=== PATIENT | female | born 1940 | race Caucasian/White ===

== ENCOUNTER 2021-10-29 11:46 | Outpatient (CLI) | payer MEDICARE, OTHER, SELFPAY ==
[2021-10-29 17:38] LABS: Albumin* 4.3 g/dL (3.3-5.0); Chloride* 102 mmol/L (96-114); Sodium* 138 mmol/L (135-149)
[2021-10-29 17:41] LABS: Alanine Aminotransferase* 30 U/L (4-35); Alkaline Phosphatase* 99 U/L (40-150); Aspartate Amino Transferase* 34 U/L (12-35); Bilirubin Total* 0.8 mg/dL (0.1-1.5); Blood Urea Nitrogen* 22 mg/dL (7-30); Carbon Dioxide* 31 mmol/L (20-32); Creatinine* 0.7 mg/dL (0.5-1.5); Estimated Glomerular Filt Rate 88 ml/min; Glucose* 99 mg/dL (60-115); Total Protein* 7.1 g/dL (6.0-8.3)
[2021-10-29 17:42] LABS: Calcium* 9.6 mg/dL (8.4-10.6)
== END 2021-10-29 11:47 | disposition home or self-care (01) ==
LOC: LONREF 11:49
PROVIDERS: PCP Family Medicine; Visit Provider Family Medicine
DX: R10.9 Unspecified abdominal pain (principal)
CPT/HCPCS: 80053

== ENCOUNTER 2022-03-18 16:48 | Outpatient (CLI) | payer MEDICARE, OTHER, SELFPAY ==
--- NOTE | 2022-03-18 17:15 | CRLHL7_ITS ---
For Patients: As a result of the Century Cures Act, medical imaging exams and procedure reports are released immediately into your electronic medical record. You may view this report before your referring provider. If you have questions, please contact your health care provider. BILATERAL SCREENING MAMMOGRAM WITH COMPUTER-AIDED DETECTION AND TOMOSYNTHESIS TECHNIQUE: CC and MLO views were obtained. These mammographic images have been obtained using full-field digital technique. These mammographic images were interpreted with the benefit of computer-aided detection. Breast Tomosynthesis was used in this interpretation. COMPARISON FILM: 03/15/21,01/10/20,03/31/18. FINDINGS: There are scattered areas of fibroglandular density IMPRESSION: There is no radiographic evidence for malignancy. ASSESSMENT: BI-RADS Category 1: Negative RECOMMENDATION: Routine screening mammogram in 1 year. A lay language report of this examination will be provided to the patient. Kobi Diaz M.D. Diagnostic Radiologist [email or web address] Transcribed: 3:42 pm DW/Dictated by: Kobi Diaz MD @ 03/19/2022 12:38:00 PM (Electronically Signed)
== END 2022-03-18 16:49 | disposition home or self-care (01) ==
PROVIDERS: PCP Family Medicine; Visit Provider Family Medicine
DX: Z12.31 Encounter for screening mammogram for malignant neoplasm of breast (principal)
CPT/HCPCS: 77063; 77067

== ENCOUNTER 2022-09-27 10:06 | Emergency (ER) | payer MEDICARE, OTHER, SELFPAY ==
[2022-09-27] VITALS (14 sets, daily range): BP systolic 136–188; BP diastolic 60–93; PULSE 62–68; RESP 12; O2SAT 94–98; BMI 33.1
--- NOTE | 2022-09-27 10:32 | CRLHL7_ITS ---
For Patients: As a result of the Century Cures Act, medical imaging exams and procedure reports are released immediately into your electronic medical record. You may view this report before your referring provider. If you have questions, please contact your health care provider. INDICATION: Fall.. TECHNIQUE: CT Head without contrast. COMPARISON: None. FINDINGS: CSF spaces: Within normal limits for age. Brain parenchyma: The pugh-white differentiation is normal. No sign of mass, hemorrhage, or midline shift. Skull base and calvarium: The visualized paranasal sinuses and mastoid air cells are clear. The visualized orbits are grossly unremarkable. No skull fractures. . IMPRESSION: Unremarkable noncontrast head CT. Please note that all CT scans at this facility use dose modulation, iterative reconstruction, and/or weight-based dosing when appropriate to reduce radiation dose to as low as reasonably achievable. Dictated by Raleigh Hubbard MD @ 09/27/2022 11:53:06 AM (Electronically Signed)
--- NOTE | 2022-09-27 10:32 | CRLHL7_ITS ---
For Patients: As a result of the Century Cures Act, medical imaging exams and procedure reports are released immediately into your electronic medical record. You may view this report before your referring provider. If you have questions, please contact your health care provider. INDICATION: Central chest pain radiating to the back. TECHNIQUE: 93 mL Isovue-370 IV contrast. FINDINGS: Uniform aortic attenuation with no dissection. No mediastinal hemorrhage. No central pulmonary artery filling defect with normal caliber. Heart size is normal. No pericardial or pleural effusion. Small sliding hiatus hernia. Lung parenchyma is clear of significant nodule or consolidation. No pneumothorax. No adenopathy. No bone finding of significance in the chest. No solid visceral injury or abnormal enhancement. Gallbladder absent likely cholecystectomy. Nodular area of disorganized renal parenchyma in the left upper hilum roughly 3 x 2 cm axial and 2.5 cm greatest craniocaudal length (image 46 series 7 and image 87 series 9). Small benign parenchymal cyst on the left. Solid mass versus complex cyst ventral lower pole 17 mm (image 66 series 7). Atherosclerosis of a normal caliber aorta. Small bowel and large bowel unremarkable for age. Absent uterus. Shallow fat filled right inguinal hernia. IMPRESSION: 1. No findings to account for acute central chest pain or back pain. 2. Apparent solid masses of both kidneys suspicious for low-grade renal cell carcinoma. Correlate with ultrasound. Please note that all CT scans at this facility use dose modulation, iterative reconstruction, and/or weight-based dosing when appropriate to reduce radiation dose to as low as reasonably achievable. Dictated by Raleigh Hubbard MD @ 09/27/2022 12:21:28 PM (Electronically Signed)
[2022-09-27 10:42] LABS: Lactate* 1.3 mmol/L (0.5-1.9)
[2022-09-27] MEDS: ONDANSETRON 2 MG/ML inj 4 MG IVP (10:43)
[2022-09-27 10:44] LABS: Basophils Absolute Auto 0.03 K/uL (0.00-0.30); Basophils Percent Auto 0.4 % (0.0-3.0); Eosinophils Absolute Auto 0.12 K/uL (0.00-0.50); Eosinophils Percent Auto 1.4 % (0.0-7.0); Hematocrit 50.1 % (33.0-51.0); Hemoglobin* 16.6 gm/dL (12.0-16.0); Immature Granulocytes Abs Auto 0.04 K/uL (0.00-0.30); Immature Granulocytes Pct Auto 0.5 %; Lymphocytes Absolute Auto 2.02 K/uL (0.90-2.90); Lymphocytes Percent Auto 24.3 % (20-44); Mean Corpuscular HGB Conc 33 gm/dL (32-36); Mean Corpuscular Hemoglobin 30 pg (26-34); Mean Corpuscular Volume 91 fL (80-100); Monocytes Percent Auto 6.7 % (0.0-11.0); Neutrophils Absolute Auto 5.53 K/uL (1.7-7.0); Neutrophils Percent Auto 66.7 % (42.0-72.0); Platelet Count* 218 K/uL (140-440); RDW Coefficient of Variation % 12.5 % (11.5-15.5); Red Blood Count 5.48 m/uL (4.00-5.20)
[2022-09-27 10:45] LABS: Slide Review Reflex No
--- NOTE | 2022-09-27 10:53 | ED.GENADULT ---
HPI - General Adult General Chief complaint: Chest Pain Stated complaint: possible heart attack Time Seen by Provider: 09/27/22 10:20 Source: patient Mode of arrival: ambulatory Limitations: no limitations History of Present Illness HPI narrative: Patient is a 82-year-old female coming in today complaining of not feeling well. She states that she was gardening this morning and felt fine. She went inside the house to have her daily morning protein drink which she had without difficulty. Then she had a little bit of orange juice in all the sudden she started feeling sick to her stomach and lightheaded. She tried to make it to her recliner but she states that she sank to the floor and potentially passed out. She is unsure if she lost consciousness or not but she believes that she might have. She tells me however that she was able to sink to the floor and not hit anything on the way down. She then got up on her own and sat down on the recliner and called her . She began feeling chest pain across the entire chest and the pain radiated into the center and right side of her back. She was able to ambulate to her car and her drove her here. At the moment she complains of feeling weak all over, chest pain that wraps across the entire front of the chest and continues to radiate into her back and down into the abdomen. This pain is made worse by any kind of movement. Of note, This pain started before she fell. She does not feel short of breath. She does feel very nauseated but has not yet vomited. She denies headache or blurry vision. No ringing in her ears. No vertiginous symptoms. She denies any focal neurologic deficits. She denies any pain in her neck. Related Data Home Medications Medication Instructions Recorded Confirmed No Known Home Medications 10/29/21 Allergies Allergy/AdvReac Type Severity Reaction Status Date / Time bacitracin Allergy Intermediate Hives Verified 10/29/21 11:03 cephalexin Allergy Intermediate Rash Verified 10/29/21 11:03 codeine Allergy Intermediate GI upset Verified 10/29/21 11:03 adhesive Allergy Unknown Rash Verified 10/29/21 11:03 feathers Allergy Unknown Rash Verified 10/29/21 11:03 gatifloxacin Allergy Unknown Rash Verified 10/29/21 11:03 neomycin Allergy Unknown Hives Verified 10/29/21 11:03 polymyxin B Allergy Unknown Hives Verified 10/29/21 11:03 triamcinolone Allergy Unknown intolerance Verified 10/29/21 11:03 Sulfamethoxazole / Allergy Severe hives, Uncoded 10/29/21 11:03 trimethoprim nausea, headache Bee venom Allergy Unknown Uncoded 10/29/21 11:03 Erythromycin Allergy Unknown Hives Uncoded 10/29/21 11:03 Review of Systems Status of ROS: Reports: 10 or more systems reviewed and unremarkable except as noted in History and below [facility] Medical History History of renal calculi ?Z87.442 - Personal history of urinary calculi (ICD-10) Surgical History Status post hysterectomy ?Z90.710 - Acquired absence of both cervix and uterus (ICD-10) Status post cholecystectomy ?Z90.49 - Acquired absence of other specified parts of digestive tract (ICD-10) Status post cataract extraction ?Z98.49 - Cataract extraction status, unspecified eye (ICD-10) Status post bladder repair ?Z98.890 - Other specified postprocedural states (ICD-10) History of tonsillectomy and adenoidectomy ?Z90.89 - Acquired absence of other organs (ICD-10) History of thumb surgery ?Z98.890 - Other specified postprocedural states (ICD-10) History of repair of retinal tear by laser photocoagulation ?Z98.890 - Other specified postprocedural states (ICD-10) Family History Other Breast cancer Diabetes Esophageal cancer Melanoma Myasthenia gravis Social History Smoking Status: Never smoker Do you use any of these nicotine containing products: None Second hand tobacco smoke exposure: No How often do you have a drink containing alcohol: never AUDIT-C Alcohol total score: 0 Non-prescribed substance use: denies use service: No Exam Narrative: Exam Narrative: Well-nourished well-developed patient in no acute distress. Alert and oriented x3. She keeps her eyes closed during the majority of the H&P. Answers questions appropriately. Mood and affect are appropriate. Thoughts are goal oriented and rational. No tangential or magical thinking noted. Patient speaks in full sentences without needing to catch her breath. Speech is not slurred or pressured. HEENT: Normocephalic atraumatic. Symmetric. Pupils are equally round reactive to light. Extraocular muscles are intact. Conjunctivae are moist without any icterus noted. No pallor noted. Moist mucous membranes. Posterior pharynx is normal. Neck is soft without any lymphadenopathy or thyromegaly. No masses are appreciated. Cardiovascular: Heart is regular rate and rhythm S1 and S2 are present without any murmurs. Lungs: Clear to auscultation bilaterally no wheezes rhonchi or rales are appreciated. Patient takes deep breaths without any discomfort. She jumps in pain when I lightly simply put my hand the skin of the anterior chest wall. She is less bothered when I am auscultating with firmer pressure with the stethoscope. Abdomen: Soft and nondistended with normal bowel sounds. No guarding or rebound. No masses or organomegaly appreciated. Patient groans loudly in pain with very light palpation of the epigastric region, she seems less bothered when the abdomen is being auscultated with firmer pressure by the stethoscope. Extremities: Bilateral lower extremities are without edema. Normal DP and PT pulses. Skin: Well perfused without any obvious rashes. Back: Patient has no tenderness to palpation at the cervical, thoracic or lumbar spine. She has discomfort around the upper right back that is diffuse and reproduced with very light touch, she has no point tenderness over the scapula. Const: Vital Signs, click to edit/add: Vital Signs - 24 hr 09/27/22 10:12 09/27/22 10:13 09/27/22 10:13 Pulse Rate 67 Pulse Rate [Pulse Oximeter] 65 Respiratory Rate Blood Pressure 188/93 H Blood Pressure [Le ft Upper Arm] 188/93 H Pulse Oximetry 97 97 98 Oxygen Delivery Me thod Room Air 09/27/22 10:32 09/27/22 11:02 09/27/22 11:33 Pulse Rate 62 68 Pulse Rate [Pulse Oximeter] Respiratory Rate 12 Blood Pressure 174/83 H 145/72 H 170/75 H Blood Pressure [Le ft Upper Arm] Pulse Oximetry 94 97 Oxygen Delivery Me thod 09/27/22 12:02 09/27/22 12:31 09/27/22 13:02 Pulse Rate 64 68 64 Pulse Rate [Pulse Oximeter] Respiratory Rate Blood Pressure 161/74 H 162/74 H 156/79 H Blood Pressure [Le ft Upper Arm] Pulse Oximetry 96 94 97 Oxygen Delivery Me thod 09/27/22 13:31 09/27/22 14:04 09/27/22 14:31 Pulse Rate 66 63 65 Pulse Rate [Pulse Oximeter] Respiratory Rate Blood Pressure 146/75 H 148/85 H 148/62 H Blood Pressure [Le ft Upper Arm] Pulse Oximetry 96 97 98 Oxygen Delivery Me thod 09/27/22 15:02 Pulse Rate 65 Pulse Rate [Pulse Oximeter] Respiratory Rate Blood Pressure 138/60 Blood Pressure [Le ft Upper Arm] Pulse Oximetry 95 Oxygen Delivery Me thod Course Course Hospital Course: Shortly after the physical exam was done patient did vomit. IV was started. 500 mL of normal saline was started as well. Patient received aspirin. EKG, read by me, shows a left bundle-branch block which according to the patient and her medical history is not new. Point of care troponin was normal. Given the amount of pain at the patient is describing across her chest and into her back we did proceed with a chest abdomen pelvis CT with contrast to rule out dissection. Chest, abdomen, pelvis CT did not show any evidence of aortic dissection or PE. Did however show bilateral kidney lesions concerning for carcinoma. Therefore we proceeded with ultrasound which confirmed the findings. Head CT was also done given an unwitnessed fall followed by vomiting. This was unremarkable. Repeat EKG showed some mild changes in leads 3 and AVF that were not concerning. Serial troponins times 3 in total remain unchanged. While waiting for ultrasound results, patient requested to each which she did without difficulty nausea or vomiting. She then actually felt significantly better stating that her pain was gone. She requested discharge at this time. We discussed at length that perhaps observation in the hospital overnight would be a better idea given the amount of pain that she was in earlier, patient stated that this was not necessary and she felt comfortable going home. Remainder of lab work was unremarkable. Vital Signs Vital signs: Initial Vital Signs Pulse Oximetry 97 09/27/22 10:12 Vital Signs Pulse Oximetry 97 09/27/22 10:12 Pulse Rate 65 09/27/22 15:02 Respiratory Rate 12 09/27/22 11:02 Blood Pressure 138/60 09/27/22 15:02 Pulse Oximetry 95 09/27/22 15:02 Oxygen Delivery Method Room Air 09/27/22 10:13 Medical Decision Making MDM Narrative Medical decision making narrative: 82-year-old female with an episode of syncope and chest pain radiating into her back, etiology unclear at this time but thorough workup did not find a reason for her symptoms today. Differential diagnoses considered including coronary artery disease and acute coronary syndrome, aortic dissection, PE, pneumothorax, pericarditis. Pain alleviated after eating. Nausea vomiting resolved. I do recommend she follow up with primary care provider this coming week to discuss her workup and her symptoms. I also recommend she follow up with her primary to discuss a follow-up MRI for her renal lesions. This was explained to her and her as well as written on her discharge documentation today. Medical Records Medical records reviewed: Yes I reviewed the patient's medical records Lab Data Lab results reviewed: Yes I reviewed the patient's lab results Labs: Lab Results 09/27/22 09/27/22 09/27/22 Range/Units 10:15 11:45 11:57 WBC 8.30 (4.50-11.00) K/uL RBC 5.48 H (4.00-5.20) m/uL Hgb 16.6 H (12.0-16.0) gm/dL Hct 50.1 (33.0-51.0) % MCV 91 (80-100) fL MCH 30 (26-34) pg MCHC 33 (32-36) gm/dL RDW Coeff of Cliff 12.5 (11.5-15.5) % Plt Count 218 (140-440) K/uL Neut % (Auto) 66.7 (42.0-72.0) % Lymph % (Auto) 24.3 (20-44) % Parmer % (Auto) 6.7 (0.0-11.0) % Eos % (Auto) 1.4 (0.0-7.0) % Baso % (Auto) 0.4 (0.0-3.0) % Neut # (Auto) 5.53 (1.7-7.0) K/uL Lymph # (Auto) 2.02 (0.90-2.90) K/uL Parmer # (Auto) 0.60 (0.00-0.90) K/UL Eos # (Auto) 0.12 (0.00-0.50) K/uL Baso # (Auto) 0.03 (0.00-0.30) K/uL ESR 5 (2-20) mm/hr Sodium 138 (135-149) mmol/L Potassium 4.4 (3.6-5.1) mmol/L Chloride 104 (96-114) mmol/L Carbon Dioxide 27 (20-32) mmol/L BUN 19 (7-30) mg/dL Creatinine 0.8 (0.5-1.5) mg/dL Estimated Creat Clear 37.12 Estimated GFR 74 ml/min Glucose 123 H (60-115) mg/dL Lactate 1.3 (0.5-1.9) mmol/L Calcium 9.5 (8.4-10.6) mg/dL Total Bilirubin 1.0 (0.1-1.5) mg/dL Direct Bilirubin 0.1 (0.0-0.5) mg/dL AST 33 (12-35) U/L ALT 27 (4-35) U/L Alkaline Phosphatase 94 (40-150) U/L Total Creatine Kinase 62 (41-117) U/L Troponin I < 0.01 L (0.01-0.04) ng/mL C-Reactive Protein 0.8 (0.5-1.0) mg/dL NT-Pro-B Natriuret Pep 247 pg/mL Total Protein 7.3 (6.0-8.3) g/dL Albumin 4.4 (3.3-5.0) g/dL Urine Color Yellow (Yellow) Urine Appearance Clear (Clear) Urine pH 7.5 (5.0-8.5) Ur Specific [place] 1.015 (1.000-1.030) Urine Protein Negative (Negative) Urine Glucose (UA) Negative (Negative) Urine Ketones Negative (Negative) Urine Blood Negative (Negative) Urine Nitrite Negative (Negative) Urine Bilirubin Negative (Negative) Urine Urobilinogen 0.2 (0.2-1.0) Ur Leukocyte Esterase Negative (Negative) Urine RBC 0-2 (0-2) Urine WBC 0-2 (0-5) Ur Squamous Epith Cells Few (None-Few) Urine Bacteria None (None) POC Troponin I 0.01 0.01 (0.01-0.04) ng/ml 09/27/22 Range/Units 13:20 WBC (4.50-11.00) K/uL RBC (4.00-5.20) m/uL Hgb (12.0-16.0) gm/dL Hct (33.0-51.0) % MCV (80-100) fL MCH (26-34) pg MCHC (32-36) gm/dL RDW Coeff of Cliff (11.5-15.5) % Plt Count (140-440) K/uL Neut % (Auto) (42.0-72.0) % Lymph % (Auto) (20-44) % Parmer % (Auto) (0.0-11.0) % Eos % (Auto) (0.0-7.0) % Baso % (Auto) (0.0-3.0) % Neut # (Auto) (1.7-7.0) K/uL Lymph # (Auto) (0.90-2.90) K/uL Parmer # (Auto) (0.00-0.90) K/UL Eos # (Auto) (0.00-0.50) K/uL Baso # (Auto) (0.00-0.30) K/uL ESR (2-20) mm/hr Sodium (135-149) mmol/L Potassium (3.6-5.1) mmol/L Chloride (96-114) mmol/L Carbon Dioxide (20-32) mmol/L BUN (7-30) mg/dL Creatinine (0.5-1.5) mg/dL Estimated Creat Clear Estimated GFR ml/min Glucose (60-115) mg/dL Lactate (0.5-1.9) mmol/L Calcium (8.4-10.6) mg/dL Total Bilirubin (0.1-1.5) mg/dL Direct Bilirubin (0.0-0.5) mg/dL AST (12-35) U/L ALT (4-35) U/L Alkaline Phosphatase (40-150) U/L Total Creatine Kinase (41-117) U/L Troponin I (0.01-0.04) ng/mL C-Reactive Protein (0.5-1.0) mg/dL NT-Pro-B Natriuret Pep pg/mL Total Protein (6.0-8.3) g/dL Albumin (3.3-5.0) g/dL Urine Color (Yellow) Urine Appearance (Clear) Urine pH (5.0-8.5) Ur Specific [place] (1.000-1.030) Urine Protein (Negative) Urine Glucose (UA) (Negative) Urine Ketones (Negative) Urine Blood (Negative) Urine Nitrite (Negative) Urine Bilirubin (Negative) Urine Urobilinogen (0.2-1.0) Ur Leukocyte Esterase (Negative) Urine RBC (0-2) Urine WBC (0-5) Ur Squamous Epith Cells (None-Few) Urine Bacteria (None) POC Troponin I 0.01 (0.01-0.04) ng/ml Imaging Data CT scan - head: Attestation: I have reviewed the pertinent imaging results. Radiologist's impression: CT Head without contrast. COMPARISON: None. FINDINGS: CSF spaces: Within normal limits for age. Brain parenchyma: The pugh-white differentiation is normal.? No sign of mass, hemorrhage, or midline shift. Skull base and calvarium: The visualized paranasal sinuses and mastoid air cells are clear.? The visualized orbits are grossly unremarkable.? No skull fractures.? . IMPRESSION: Unremarkable noncontrast head CT. CT Chest/Ab/Pelvis: Attestation: I have reviewed the pertinent imaging results. Radiologist's impression: TECHNIQUE: 93 mL Isovue-370 IV contrast. FINDINGS: Uniform aortic attenuation with no dissection. No mediastinal hemorrhage. No central pulmonary artery filling defect with normal caliber. Heart size is normal. No pericardial or pleural effusion. Small sliding hiatus hernia. Lung parenchyma is clear of significant nodule or consolidation. No pneumothorax. No adenopathy. No bone finding of significance in the chest. No solid visceral injury or abnormal enhancement. Gallbladder absent likely cholecystectomy. Nodular area of disorganized renal parenchyma in the left upper hilum roughly 3 x 2 cm axial and 2.5 cm greatest craniocaudal length (image 46 series 7 and image 87 series 9). Small benign parenchymal cyst on the left. Solid mass versus complex cyst ventral lower pole 17 mm (image 66 series 7). Atherosclerosis of a normal caliber aorta. Small bowel and large bowel unremarkable for age. Absent uterus. Shallow fat filled right inguinal hernia. IMPRESSION: 1. No findings to account for acute central chest pain or back pain. 2. Apparent solid masses of both kidneys suspicious for low-grade renal cell carcinoma. Correlate with ultrasound. US - abdomen: Attestation: I have reviewed the pertinent imaging results. Radiologist's impression: Bilateral renal masses. COMPARISON: CT abdomen and pelvis with contrast done earlier the same day. Findings: Renal and bladder ultrasound was performed. Right kidney 11.0 x 6.4 x 6.1 cm with cortical thickness of 1.6 cm. In the upper right kidney mid kidney medially there is an area marked by the paper pattern folder measuring 5.4 x 4.0 x 3.9 cm. This measures larger than mass on the CT scan done earlier same day animation on the ultrasound may include that in the renal hilum. A hypoechoic area within this measures approximately 2.4 by 2.0 cm and is solid in appearance. On the CT scan the mass measuring 3 x 2 x 2.5 cm and is enhancing and solid in appearance. There is no right hydronephrosis. The left kidney measures 11.0 x 5.5 x 5.3 cm. In the left kidney superiorly there is an area measured by the paper pattern folder which is likely normal renal parenchyma as there is no lesion in the upper pole of the left kidney on the CT scan. The lesion in the lower pole left kidney anteriorly on the CT scan of done earlier same day is not seen on this ultrasound. Also the previous described the cysts in the left kidney are not well seen on this ultrasound. There is no left hydronephrosis. The urinary bladder is unremarkable. IMPRESSION: Solid-appearing mass in the right mid kidney medially in the renal hilum worrisome for renal cell carcinoma. Previously described subtle lesion in the lower pole of the left kidney anteriorly on the CT scan done the same day is not well seen on this ultrasound. Also increased described cysts in left kidney are not well seen on this study. The lesion lower pole left kidney is worrisome for a worse for renal cell carcinoma on the CT scan. Recommend MRI of the kidneys with contrast for further evaluation. ECG Data Attestation: I personally reviewed and interpreted this ECG as follows: Discharge Plan Discharge Clinical Impression: Back pain, Atypical chest pain, Kidney lesion Patient Disposition: Home, Self-Care Condition: Improved Additional Instructions: Your workup was unremarkable today: There was no evidence of heart attack, pneumonia, blood clots in your lungs or inflammation of the heart or lungs today. Reason for your back and chest pain is unclear, however no evidence of life-threatening causes identified today. Did find a lesion on both of your kidneys that are concerning for tumors. I do recommend you follow-up with your primary care provider this coming week to have an MRI scheduled of your abdomen to get a better look at the kidneys. Recommend you call your primary care on Thursday morning to set up an appointment for an ER follow-up. Dr. Chapa will have access to today's notes and results. Prescriptions: No Action No Known Home Medications Follow Up/Referrals: Jack Gregorio MD [Primary Care Provider] - Stand Alone Forms: [employer] Info Instructions
[2022-09-27 11:01] LABS: Albumin* 4.4 g/dL (3.3-5.0)
[2022-09-27] MEDS: ASPIRIN 81 MG TAB.CHEW 324 MG PO (11:01)
[2022-09-27 11:02] LABS: Chloride* 104 mmol/L (96-114); Potassium* 4.4 mmol/L (3.6-5.1); Sodium* 138 mmol/L (135-149)
[2022-09-27] MEDS: 0.9 % SODIUM CHLORIDE 500 ML 500 ML IV (11:02)
[2022-09-27 11:04] LABS: Alanine Aminotransferase* 27 U/L (4-35); Alkaline Phosphatase* 94 U/L (40-150); Aspartate Amino Transferase* 33 U/L (12-35); Bilirubin Direct* 0.1 mg/dL (0.0-0.5); Total Protein* 7.3 g/dL (6.0-8.3)
[2022-09-27 11:05] LABS: Blood Urea Nitrogen* 19 mg/dL (7-30); Carbon Dioxide* 27 mmol/L (20-32); Creatinine* 0.8 mg/dL (0.5-1.5); Est. Creatinine Clearance* 37.12; Estimated Glomerular Filt Rate 74 ml/min; Glucose* 123 mg/dL (60-115)
[2022-09-27 11:06] LABS: Calcium* 9.5 mg/dL (8.4-10.6)
[2022-09-27 11:07] LABS: C Reactive Protein* 0.8 mg/dL (0.5-1.0)
[2022-09-27 11:15] LABS: NT Pro B Type NatriureticPept* 247 pg/mL
[2022-09-27 11:17] LABS: Troponin I* < 0.01 ng/mL (0.01-0.04)
[2022-09-27 11:21] LABS: Erythrocyte SedimentationRate* 5 mm/hr (2-20)
[2022-09-27 12:04] LABS: Troponin, Point-of-Care* 0.01 ng/ml (0.01-0.04)
[2022-09-27 12:04] LABS: Troponin, Point-of-Care* 0.01 ng/ml (0.01-0.04)
[2022-09-27 12:08] LABS: Appearance Urine Clear (Clear); Bilirubin Urine Negative (Negative); Blood Urine Negative (Negative); Color Urine Yellow (Yellow); Glucose Urine Negative (Negative); Ketones Urine Negative (Negative); Leukocyte Esterase Urine Negative (Negative); Nitrite Urine Negative (Negative); Protein Urine Negative (Negative); Specific Gravity Urine 1.015 (1.000-1.030); Urobilinogen Urine 0.2 (0.2-1.0); pH Urine 7.5 (5.0-8.5)
[2022-09-27 12:25] LABS: RBC Urine 0-2 (0-2); Squamous Epithelial Cell Urine Few (None-Few); WBC Urine 0-2 (0-5)
--- NOTE | 2022-09-27 12:46 | ED.NURSE ---
declined morphine as she states she doesn't need it and is afraid to take it due to how she may react to it.
[2022-09-27 13:01] LABS: Creatine Kinase* 62 U/L (41-117)
--- NOTE | 2022-09-27 13:15 | CRLHL7_ITS ---
For Patients: As a result of the Century Cures Act, medical imaging exams and procedure reports are released immediately into your electronic medical record. You may view this report before your referring provider. If you have questions, please contact your health care provider. INDICATION: Bilateral renal masses. COMPARISON: CT abdomen and pelvis with contrast done earlier the same day. Findings: Renal and bladder ultrasound was performed. Right kidney 11.0 x 6.4 x 6.1 cm with cortical thickness of 1.6 cm. In the upper right kidney mid kidney medially there is an area marked by the utility system repairer measuring 5.4 x 4.0 x 3.9 cm. This measures larger than mass on the CT scan done earlier same day animation on the ultrasound may include that in the renal hilum. A hypoechoic area within this measures approximately 2.4 by 2.0 cm and is solid in appearance. On the CT scan the mass measuring 3 x 2 x 2.5 cm and is enhancing and solid in appearance. There is no right hydronephrosis. The left kidney measures 11.0 x 5.5 x 5.3 cm. In the left kidney superiorly there is an area measured by the utility system repairer which is likely normal renal parenchyma as there is no lesion in the upper pole of the left kidney on the CT scan. The lesion in the lower pole left kidney anteriorly on the CT scan of done earlier same day is not seen on this ultrasound. Also the previous described the cysts in the left kidney are not well seen on this ultrasound. There is no left hydronephrosis. The urinary bladder is unremarkable. IMPRESSION: Solid-appearing mass in the right mid kidney medially in the renal hilum worrisome for renal cell carcinoma. Previously described subtle lesion in the lower pole of the left kidney anteriorly on the CT scan done the same day is not well seen on this ultrasound. Also increased described cysts in left kidney are not well seen on this study. The lesion lower pole left kidney is worrisome for a worse for renal cell carcinoma on the CT scan. Recommend MRI of the kidneys with contrast for further evaluation. Dictated by Teddy Orellana MD @ 09/27/2022 3:46:57 PM (Electronically Signed)
[2022-09-27 13:56] LABS: Troponin, Point-of-Care* 0.01 ng/ml (0.01-0.04)
== END 2022-09-27 16:29 | disposition home or self-care (01) ==
PROVIDERS: Emergency Provider Family Medicine; PCP Family Medicine
DX: M54.9 Dorsalgia, unspecified (principal); R07.89 Other chest pain; N28.9 Disorder of kidney and ureter, unspecified
CPT/HCPCS: 36415; 70450; 71260; 74177; 76775; 80048; 80076; 81001; 82550; 82962; 83605; 83880; 84484; 85025; 85651; 86140; 87086; 93005; 94761; 96361; 96374; 96375; 99284; 99285; A9270; J2405; J7120; Q9967

== ENCOUNTER 2022-10-10 07:03 | Outpatient (CLI) | payer MEDICARE, OTHER, SELFPAY ==
--- NOTE | 2022-10-10 07:15 | CRLHL7_ITS ---
For Patients: As a result of the Century Cures Act, medical imaging exams and procedure reports are released immediately into your electronic medical record. You may view this report before your referring provider. If you have questions, please contact your health care provider. INDICATION: Bilateral renal lesions. COMPARISON: CT chest, abdomen and pelvis with intravenous contrast September 27, 2022; ultrasound examination of the kidneys September 27, 2022. TECHNIQUE: Precontrast T1 and T2 weighted imaging; T2 haste imaging; diffusion weighted imaging; in and out of phase imaging; postcontrast imaging including subtraction; 15 cc of Dotarem contrast was injected. FINDINGS: A 3 x 2.9 x 2.5 cm solid enhancing mass medial aspect anterior upper pole right kidney. A 2 x 1.7 cm solid enhancing mass in the renal parenchyma anterior aspect lower pole left kidney. Several cysts identified in the left kidney. No adrenal pathology. Diffuse fatty infiltration of the liver. No focal hepatic or splenic pathology. No pancreatic pathology. Status post cholecystectomy. No evidence of biliary duct dilatation. No retroperitoneal lymphadenopathy. No evidence of abdominal ascites. IMPRESSION: 1. A 3 x 2.9 x 2.5 cm solid enhancing mass anterior medial upper pole right kidney and a 2 x 1.7 cm solid enhancing mass within the renal parenchyma anterior lower pole left kidney; need to be considered as renal cell carcinomas until proven otherwise. 2. A 1.2 cm lesion medial aspect lower pole left kidney that was seen on the CT could not be reproduced on this MR study ; Still concerning for an additional small renal cell neoplasm in this location. 3. Multiple small cortical cyst left kidney. Dictated by Bashir Mai MD @ 10/10/2022 2:28:38 PM (Electronically Signed)
== END 2022-10-10 07:04 | disposition home or self-care (01) ==
LOC: MRI 07:06
PROVIDERS: PCP Family Medicine; Visit Provider Family Medicine
DX: N28.89 Other specified disorders of kidney and ureter (principal); N28.1 Cyst of kidney, acquired
CPT/HCPCS: 74183; A9575

== ENCOUNTER 2022-10-20 08:24 | Outpatient (CLI) | payer MEDICARE, OTHER, SELFPAY | END 2022-10-20 08:25 | disposition home or self-care (01) | PROVIDERS: PCP Family Medicine; Visit Provider Family Medicine | DX: Z01.818 Encounter for other preprocedural examination (principal) | CPT/HCPCS: 80048 ==

== ENCOUNTER 2023-03-24 16:03 | Outpatient (CLI) | payer MEDICARE, OTHER, SELFPAY ==
--- NOTE | 2023-03-24 16:20 | CRLHL7_ITS ---
For Patients: As a result of the Century Cures Act, medical imaging exams and procedure reports are released immediately into your electronic medical record. You may view this report before your referring provider. If you have questions, please contact your health care provider. BILATERAL SCREENING MAMMOGRAM WITH COMPUTER-AIDED DETECTION AND TOMOSYNTHESIS TECHNIQUE: CC and MLO views were obtained. These mammographic images have been obtained using full-field digital technique. These mammographic images were interpreted with the benefit of computer-aided detection. Breast Tomosynthesis was used in this interpretation. COMPARISON FILM: 03/15/21, 01/10/20, 03/31/18. FINDINGS: There are scattered areas of fibroglandular density IMPRESSION: There is no radiographic evidence for malignancy. ASSESSMENT: BI-RADS Category 1: Negative RECOMMENDATION: Routine screening mammogram in 1 year. A lay language report of this examination will be provided to the patient. Clary Mistry M.D. Diagnostic/Breast Radiologist [email or web address] BERRY/Dictated by: Clary Mistry MD @ 03/26/2023 4:16:00 PM (Electronically Signed)
== END 2023-03-24 16:04 | disposition home or self-care (01) ==
LOC: MAMMO 16:04
PROVIDERS: PCP Family Medicine; Visit Provider Family Medicine
DX: Z12.31 Encounter for screening mammogram for malignant neoplasm of breast (principal)
CPT/HCPCS: 77063; 77067

== ENCOUNTER 2024-02-09 09:12 | Outpatient (CLI) | payer MEDICARE, OTHER, SELFPAY ==
--- OUTSIDE RECORDS SUMMARY | 2024-02-09 09:16 | XMS_ITS | Clinical Summary ---
Author Organization [facility] Address [place], [place] [address] Care Team Providers Care Records Management Engineer Name Role Phone Jack Gregorio MD Primary Care Provider Allergies Active Allergy Reactions Criticality Noted Date Comments Zinc Acetate Rash 08/10/2018 Bacitracin Hives 02/20/2011 Sulfamethoxazole-Trimet hoprim Hives,Nausea Only,Headache High 03/23/2018 Hymenoptera Allergenic Extract 01/08/2009 Codeine GI Upset 01/28/2007 Erythromycin Hives 02/20/2011 From ointment Feathers Rash 01/28/2007 Cephalexin Rash 01/28/2007 ##Pharmacist completed allergy assessment. Allergy determined to be low risk. Will likely tolerate cefazolin, as it does not share a side chain with cephalexin and risk for cross-reactivity is low. Bessie Diane [facility] Wzexekwd-Kqzwundzhs-Tgg ymyxin Hives 02/20/2011 Adhesive Tape Rash 01/28/2007 Gatifloxacin Rash 01/28/2007 Triamcinolone Intolerance-Can't Take 01/28/2007 Medications Medication Sig Dispensed Refills Start Date End Date Status Patients Unique Medication From Home Osteo matrix - 1 tablet by mouth at bedtime Joint complex - 1 tablet by mouth at bedtime Active oxyCODONE (ROXICODONE) 5 mg immediate release tabletIndications:Ri ght renal mass Take 1 Tablet (5 mg) by mouth every 6 hours if needed for Pain. 10 Tablet 11/22/2022 Active docusate (COLACE) 100 mg capsuleIndications:R ight renal mass Take 1 Capsule (100 mg) by mouth 2 times daily if needed for Constipation. 30 Capsule 11/22/2022 Active Active Problems No known active problems Immunizations Name Administration Dates Next Due Td (Age >=7 Years) 01/22/2006 Tdap 03/20/2015 Family History Medical History Relation Name Comments Cancer Brother 2 MELANOMA Diabetes Father Other Father MYASTHENIA GRAV IS Cancer Mother ESOPHAGEAL Cancer-breast Sister Relation Name Status Comments Brother 1 Brother 2 Father Mother Sister Social History Tobacco Use Types Packs/Day Years Used Date Smoking Tobacco: Never Smokeless Tobacco: Never Tobacco Cessation:Counseling Given: Yes Alcohol Use Standard Drinks/Week Comments No 0 (1 standard drink = 0.6 oz pur e alcohol) PHQ-2 Answer Date Recorded PHQ-2 TOTAL SCORE 0 01/10/2020 Social Connections Answer Date Recorded Frequency of Communication with Friends and Fami ly Not on file 11/21/2022 Financial Resource Strain Answer Date R ecorded Difficulty of Paying Living Expenses Not on file 04/06/2021 Difficulty of Paying Living Expenses Not on file 04/06/2021 Sex and Gender Information Value Date Recorded Sex Assigned at Not on file Gender Identity Not on file Sexual Orientation Not on file Obstetrics History Para Term AB IAB SAB Ectopic Multiple Livin g Live Births 7 6 6 1 1 6 Date Outcome GA Total Labor Labor/2nd/3rd Weight Sex Type Anes PTL Nancy A1 A5 Name Clin SAB Term Term Term Term Term Term Last Filed Vital Signs Vital Sign Reading Time Taken Comments Blood Pressure 121/60 11/22/2022 7:50 AM CDT Pulse 63 11/22/2022 7:50 AM CDT Temperature 36.6 ??C (97.8 ??F) 11/22/2022 7:50 AM CD T Respiratory Rate 18 11/22/2022 7:50 AM CDT Oxygen Saturation 93% 11/22/2022 7:50 AM CDT Inhaled Oxygen Concentration - - Weight 88 kg (194 lb 1.6 oz) 11/22/2022 6:00 AM CDT Height 157.5 cm (5' 2) 11/21/2022 6:52 AM CDT Body Mass Index 35.5 11/21/2022 6:52 AM CDT Plan of Treatment Health Maintenance Due Date Last Done Comments Zoster (shingles) series for age 50+ (1 of 2) 02/02/1992 Pneumococcal series for age 65+ (1 of 1 - PCV) 2007 RSV vaccine for adults or (1 - 1-dose 75+ series) 2017 BMI (ht and wt on same day) for age 18+ 01/09/2021 01/10/2020, 01/17/2019, 12/27/2018, Additional history exists Depression screening for age 12+ 01/09/2021 01/10/2020, 03/31/2018, 03/27/2017, Additional history exists Medicare Wellness for age 65+ 01/10/2021, 03/31/2018, 03/27/2017, Additional history exists COVID-19 vaccine series ( season) 2023 08/13/2021, 01/21/2021, 06/05/2020, Additional history exists Influenza for age 65+ 12/06/2023 Tetanus booster 03/20/2025 03/20/2015, 01/22/2006 DEXA/DXA scan for age 65+ Completed 02/20/2011 Tdap Completed 03/20/2015 Procedures Procedure Name Priority Date/Time Associated Diagnosis Comments XR DXA BONE DENSITY 2 SITES AXIAL Routine 02/20/2011 11:36 AM VEGETABLE VENDOR Post hysterectomy menopause from Last 3 Months or Most Recently Relevant to Health Maintenance Results * XR DEXA BONE DENSITY 2 SITES (02/20/2011 11:36 AM VEGETABLE VENDOR) Anatomical Region Laterality Modality Spine, HIPS, HIPL, HIPR Bone Den sitometry Narrative 02/28/2011 9:32 AM VEGETABLE VENDOR Please see scanned document for results of this study. Procedure Note Mary Almonte MD - 02/28/2011 Please see scanned document for results of this study. Jeevan Obrien MD DEXA from Last 3 Months or Most Recently Relevant to Health Maintenance Advance Directives * Full Code (Latest Code Status on File) Date Activated Date Inactivated Comments 11/21/2022 6:12 AM 11/22/2022 8:10 PM Question Answer Comments Code Status Discussion: Unable to Assess Preferences, Provider to review later Care Teams Records Management Engineer Relationship Specialty Start Date End Date Jack Gregorio MD PCP - General Family Practice 01/26/23
== END 2024-02-09 09:13 | disposition home or self-care (01) ==
PROVIDERS: PCP Family Medicine; Visit Provider Family Medicine
DX: Z00.00 Encounter for general adult medical examination without abnormal findings (principal); R53.83 Other fatigue; E78.5 Hyperlipidemia, unspecified
CPT/HCPCS: 80053; 80061; 84443; 87086

== ENCOUNTER 2024-04-12 08:29 | Outpatient (CLI) | payer MEDICARE, OTHER, SELFPAY ==
--- NOTE | 2024-04-12 08:45 | CRLHL7_ITS ---
For Patients: As a result of the Century Cures Act, medical imaging exams and procedure reports are released immediately into your electronic medical record. You may view this report before your referring provider. If you have questions, please contact your health care provider. BILATERAL SCREENING MAMMOGRAM WITH COMPUTER-AIDED DETECTION AND TOMOSYNTHESIS TECHNIQUE: CC and MLO views were obtained. These mammographic images have been obtained using full-field digital technique. These mammographic images were interpreted with the benefit of computer-aided detection. Breast Tomosynthesis was used in this interpretation. COMPARISON FILM: 03/24/23, 03/18/22, 03/15/21. FINDINGS: There are scattered areas of fibroglandular density. IMPRESSION: There is no radiographic evidence for malignancy. ASSESSMENT: BI-RADS Category 2: Benign RECOMMENDATION: Routine screening mammogram in 1 year. A lay language report of this examination will be provided to the patient. Kobi Diaz M.D. Diagnostic Radiologist [email or web address] SP/Dictated by: Kobi Diaz MD @ 04/12/2024 10:28:00 AM (Electronically Signed)
== END 2024-04-12 08:30 | disposition home or self-care (01) ==
LOC: MAMMO 08:30
PROVIDERS: PCP Family Medicine; Visit Provider Family Medicine
DX: Z12.31 Encounter for screening mammogram for malignant neoplasm of breast (principal)
CPT/HCPCS: 77063; 77067

== ENCOUNTER 2024-11-04 10:16 | Outpatient (CLI) | payer MEDICARE, OTHER, SELFPAY | END 2024-11-04 10:17 | disposition home or self-care (01) | PROVIDERS: PCP Family Medicine; Visit Provider Family Medicine | DX: E78.5 Hyperlipidemia, unspecified (principal); R53.83 Other fatigue; R10.11 Right upper quadrant pain | CPT/HCPCS: 80053; 82607; 84443; 86140 ==

== ENCOUNTER 2025-03-24 08:22 | Emergency (ER) | payer MEDICARE, OTHER, SELFPAY ==
[2025-03-24] VITALS (10 sets, daily range): BP systolic 161–193; BP diastolic 69–83; PULSE 63–74; RESP 14–23; TEMP 36.2; O2SAT 91–95; BMI 32.9
--- OUTSIDE RECORDS SUMMARY | 2025-03-24 08:26 | XMS_ITS | Clinical Summary ---
Author Organization [employer] [facility] Address [address] [place] [id number] Care Team Providers Care Plastic Roller Name Role Phone Jack Gregorio MD Primary Care Provider [phone] Allergies Active AllergyReactionsCriticalityNoted DateCommentsZinc NzaknunGawl34/07/2019 VnndvrmprkQcbxg40/17/2011Sulfamethoxazole-TrimethoprimHives,Nausea Only,Headache High03/23/2018Hymenoptera Allergenic Vsszlmd9901/08/2009CodeineGI Upset01/28/2007 KvojzyreuapsTlmgl17/17/2011 From ointment QhwqygrhBgtu77/25/4550ZhkyjifsmwNtpr55/25/2007 ##Pharmacist completed allergy assessment. Allergy determined to be low risk. Will likely tolerate cefazolin, as it does not share a side chain with cephalexin and risk for cross-reactivity is low. Bessie Diane RP Jbmhhola-Ypzqgapiux-LloptmrfvGxjnk56/17/2011dhesive ZfyiZxvh61/25/2007 KgtrcwnwjpclTuwn17/25/2007TriamcinoloneIntolerance-Can't Take01/28/2007 Medications MedicationSigDispense QuantityRefillsLast FilledStart DateEnd DateStatus Patients Unique Medication From Home Osteo matrix - 1 tablet by mouth at bedtime Joint complex - 1 tablet by mouth at bedtimeActive oxyCODONE (ROXICODONE) 5 mg immediate release tablet Indications:Right renal massTake 1 Tablet (5 mg) by mouth every 6 hours if needed for Pain. 10 Tablet 11/22/2022 5:19 PM CDT11/22/2022ctive docusate (COLACE) 100 mg capsule Indications:Right renal massTake 1 Capsule (100 mg) by mouth 2 times daily if needed for Constipation. 30 Capsule 11/22/2022ctive Active Problems No known active problems Immunizations ImmunizationAdministration DatesNext DueTd (Age >=7 Years)01/22/2006Tdap 03/20/2015 Family History Medical HistoryRelationNameCommentsCancerBrother 2MELANOMADiabetesFatherOther FatherMYASTHENIA GRAVISCancerMotherESOPHAGEALCancer-breastSisterRelationName StatusCommentsBrother 1DeceasedBrother 2FatherDeceasedMotherDeceasedSister Social History Tobacco UseTypesPacks/DayYears UsedDateSmoking Tobacco: NeverSmokeless Tobacco: Never Tobacco Cessation:Counseling Given: Yes Alcohol UseStandard Drinks/WeekCommentsNo0 (1 standard drink = 0.6 oz pure alcohol)PHQ-2AnswerDate RecordedPHQ-2 TOTAL [id number] Connections AnswerDate RecordedFrequency of Communication with Friends and FamilyNot on file 11/21/2022Financial Resource StrainAnswerDate RecordedDifficulty of Paying Living ExpensesNot on file2Difficulty of Paying Living ExpensesNot on file04/06/2021CommentsNoSex and Gender InformationValueDate RecordedSex Assigned at BirthNot on fileLegal CdnAumwxt27/14/2013 5:23 AM CSTGender Identity Not on fileSexual OrientationNot on fileOccupationIndustryJob Start DateJob End DateHOMEMAKERNot on fileNot on fileNot on file Obstetrics History GravidaParaTermPretermABIABSABEctopicMultipleLivingLive [id number] GATotal LaborLabor/2nd/7pjGekxmyIyoOzcyHqoaLXAKypK3T2NmyjUeyhWXRUworToppCzwjBsmk TermTerm Last Filed Vital Signs Vital SignReadingTime TakenCommentsBlood Yavqrrfn682/6008 7:50 AM CDT Sfwzj756911/22/2022 7:50 AM HEVIitzubbwgwx09.6 ??C (97.8 ??F)11/22/2022 7:50 AM CDTRespiratory Riim855411/22/2022 7:50 AM CDTOxygen Rwuxbcpmce70%11/22/2022 7:50 AM CDTInhaled Oxygen Concentration--Tsjmpa77 kg (194 lb 1.6 oz)11/22/2022 6:00 AM ZNZXaxxvz028.5 cm (5' 2)11/21/2022 6:52 AM CDTBody Mass Index35.5011/21/2022 6:52 AM CDT Plan of Treatment Health MaintenanceDue DateLast DoneCommentsPneumococcal series for age 50+ (1 of 1 - PCV)02/02/1992Zoster (shingles) series for age 50+ (1 of 2)02/02/1992RSV vaccine for adults or (1 - 1-dose 75+ series)2017BMI (ht and wt on same day) for age 18+, 01/17/2019, 12/27/2018, Additional history existsDepression screening for age 12+, 03/31/2018, 03/27/2017, Additional history existsMedicare Wellness for age 65+01/10/2021 01/10/2020, 03/31/2018, 03/27/2017, Additional history existsCOVID-19 vaccine series ( season)/01/2022, 01/21/2021, 06/05/2020, Additional history existsInfluenza Vaccine (#1)12/05/2024Tetanus booster /, 01/22/2006DEXA/DXA scan for age 65+Slylwirzo12/17/2011 Hepatitis B series for 19+Aged OutNo longer eligible based on patient's age to complete this topic Procedures Procedure NamePriorityDate/TimeAssociated DiagnosisCommentsXR DXA BONE DENSITY 2 SITES PIOIEYcvaaim26/17/2011 11:36 AM NEON LIGHT INSTALLER Post hysterectomy menopause from Last 3 Months or Most Recently Relevant to Health Maintenance Results * XR DEXA BONE DENSITY 2 SITES (02/20/2011 11:36 AM NEON LIGHT INSTALLER)Anatomical Region LateralityModalitySpine, HIPS, HIPL, HIPRBone DensitometrySpecimen (Source) Anatomical Location / LateralityCollection Method / VolumeCollection Time Received Time Narrative 02/28/2011 9:32 AM NEON LIGHT INSTALLER Please see scanned document for results of this study. Procedure Note Mary Almonte MD - 02/28/2011 Please see scanned document for results of this study. Authorizing ProviderResult TypeResult StatusReed A Micah MDDEXAFinal Result from Last 3 Months or Most Recently Relevant to Health Maintenance Insurance * Guarantor: Grace Jimenez TypeRelation to PatientDate of BirthPhone Billing AddressPersonal/QuqivrOqjx1940 [address] [place] [phone] Advance Directives * Full Code (Latest Code Status on File) Date ActivatedDate InactivatedComments11/21/2022 6:12 AM11/22/2022 8:10 PM QuestionAnswerCommentsCode Status Discussion:* Unable to Assess Preferences, Provider to review later Care Teams Team MemberRelationshipSpecialtyStart DateEnd Date Jack Gregorio MD PCP - GeneralFamily Wxuichsm41/23/23
--- OUTSIDE RECORDS SUMMARY | 2025-03-24 08:26 | XMS_ITS | Data Portability ---
Author Organization [place] [facility] Address [address] [place] [address] Assessment No assessment recorded. Plan of Treatment Reminders Order DateSubmit DateProviderLast Modified ByHarlan DetailsLast Modified TimeDetailsAppointmentsNone recorded.Labbladder cancer assay, urine - If specimen is rejected or is QNS please send patient a home kit10/23/2022 10/23/2022[employer], [address], [address], [place], [address], 07/ 10:12:11ReferralNone recorded.ProceduresNone recorded.Surgeriesnephrectomy, hand assisted laparoscopic (SURG)rbuchanan11Not bridthyxw91/25/2023 11:36:43ImagingNone recorded.Medication OrdersNone recorded. Patient TargetsNo targets recorded. Patient InstructionsNo instructions recorded. Reason for Referral None Reported. Results Created Date Observation Date Name Description Value Unit Range Abnormal Flag Note LastModifiedBy Organization Detail LastModifiedTime 10/23/2022 CT, abdomen + pelvis, w/o contrastNo observation recorded.csovellNot Available 11/21/2022 08:35:56 Result Notes None recorded. Procedures Surgical History Date Name Laterality Status Provider Name and Address Organization Details Recorded Time 11/21/2022 NEPHRECTOMY, HAND ASSISTED LAPAR OSCOPIC (SURG) Shahab Tellez [facility] Eeqragk4412/02/2022 09:58: ColonoscopycompletedSamantha Sadeel[place] [facility]10/23/2022 14:08:12 CholecystectomycompletedTanika SalasNorth [facility]10/16/2022 16:37:40extraction of cataractcom[facility] He[facility]ejas [facility] 10/16/2022 16:37:51repair of urinary bladdercomrusk rehabilitation centerJack [facility]10/16/2022 16:38:03Remove tonsils and adenoidscomfitzgibbon hospitalTanika [facility]10/16/2022 16:38:32Total hysterectomycompleted Zoila AnandNorth [facility]10/23/2022 14:07:41 Imaging Results None recorded. Procedure Notes None recorded. Medical Equipment None Reported. Allergies Allergen ID Allergen Name Allergen Category Reaction Reaction Severity Criticality Documentation Date Start Date Code Code System Note Provider Name and Address Organization Details Recorded Time 729859 Bactrim medication hives Not available Not dgxumlzns20/13/[id number] Meuleners [facility]10/16/2022 16:25:94463424dgqvcqgeqmmplasvqxuoewxm Not available Not iyajqcwtv28/13/58946462NxUbwoNsxojkr [facility]10/16/2022 16:31:36732391mxcwwwkkipckzdjteoftjwv cramps Not available Not cfiitbyus89/13/68728472XqNijfRcjndvq [facility]10/16/2022 16:31:23584425wbfktadacljfviabtnd,medicationNot available Not available Not fdtbuyqln78/13/2023mindy Salas [facility]10/16/2022 16:31:66100676nrzonibmrqpictiknqtEew available Not available Not mzgvpghua39/13/2023mindy Salas [facility]10/16/2022 16:31:96111338uksjercwsqppbyvxzgyzenZgx available Not available Not xrmcodgul45/13/1486355560QwJdzdLmvmofz [facility]10/16/2022 16:32:34155337efabthbfzerzumioutPjd available Not available Not sbkiqzxrv90/13/21409758UhHgqlLsmsgzcKyel morales, [facility]10/16/2022 16:32:75211472giprppjus BmedicationNot available Not available Not iqojgyqfw07/13/81569207CbZhdtJxrjaymKyle [facility]alesGl[facility]10/16/2022 16:32:13402539qhsmvifqldmsevnqehriugyHnm available Not available Not ldlewrlit64/13/119083238IpBvxyIrcnzvo Meuleners [facility], [facility]10/16/2022 16:32:76067821Hmmyydlzg with sulfonamide structure and antibacterial mechanism of action (substance)medicationNot available Not available Not qlvjyvwof46/13/2916174744548PZAWUDNonyoso Me[facility]10/16/2022 16:32:23507339kpxbeyllmasocuzq / trimethoprim medicationNot available Not available Not tkvqeukdy08/13/468461380OeVmmaEwqgweb [facility]10/16/2022 16:33:02458249jytgw bee venommedicationNot available Not available Not nvxdrqynh03/13/8503084185LcJkscSkmrffph Zinnba [facility], [facility]10/23/2022 14:04:57007408kcmyzlatknkqlxikzaowqsTfb available Not available Not /13/08136995LoCfrnUfluunxKyle Salas [facility]10/16/2022 16:33:29 Medications Name Sig Start Date Stop Date Status Note LastModified by Organization Details LastModified Time oxycodone 5 mg tablet 3completedNot AvailableNot AvailableNot Available Vitals Date Recorded Body height Body mass index (BMI) Body weight Provider Name and Address Organization Details Last Updated DateTime 10/23/2022 157.48 cm 34 kg/m2 70179.18 g Zoila Anand [facility] 10/23/2022 14:04:32 Date Recorded Body height Body mass index (BMI) Body weight Provider Name and Address Organization Details Last Updated DateTime 01/01/2023 157.48 cm 33.7 kg/m2 64638.79 alicja Kirkland MD [address] [facility],[address], [place], [address], [place] [facility] 01/01/2023 14:58:35 Social History Question Answer Notes LastModified by Organization D etails LastModified Time Tobacco Smoking Status Never Smoker Tanika Salas [facility] Nvdehve2910/16/2022 16:35:50What Is Your Level Of Caffeine Consumption?NonecmeulenersInformation not aimjoxfss53/13/2023EthnicityNot /LatinocmeulenersInformation not jolmnxhch04/13/2023referred Language EnglishcmeulenersInformation not rokwqctvz82/13/2023What Was The Date Of Your Most Recent Tobacco Screening?01/01/2023sovellInformation not available 01/01/2023What Is Your Relationship Status?MarriedcmeulenersInformation not zhfciqrpu40/13/2023Has Tobacco Cessation Counseling Been Provided?Nocherber Information not wckigizzo88/13/2023 Sex: Unknown Functional Status Question Answer Note LastModified by Organization D etails LastModified Time Do you or have you ever used any other forms of tobacco or nicotine? No cmeulenersInformation not oezdihajb09/13/2023What is your level of alcohol consumption?NonecmeulenersInformation not vioqovzvb76/13/2023 Mental Status None recorded. Family History Relationship Description Onset Age of this Age Resolved Age Notes LastModified by Organization Details LastModified Time Sister Family history of breast cancer szinnelNot wcltnoscu10/20/2023 14:06:27FatherFamily history of diabetes mellitus szinnelNot iozqfmcyr52/20/2023 14:06:32FatherFamily history of myasthenia gravis szinnelNot dddmqxalz10/20/2023 14:06:41MotherFamily history of malignant neoplasmesophagealszinnelNot haqwrjidd70/20/2023 14:06:55BrotherFamily history of malignant melanomaszinnelNot zhcodmiey35/20/2023 14:06:58BrotherFamily history of malignant neoplasmstomachszinnelNot cihyysxii47/20/2023 14:07:09 Medical History Condition Response Diabetes N Sexually Transmitted Infection N Other N Bleeding Disorder N High Blood Pressure N Kidney Stones N Cancer N Lung Disease N Depression N High Cholesterol N GERD/Acid Reflux N Heart Disease N Gynecological HistoryNo gynecological history recorded. Obstetrics History GPAL:G 0 P 0 0 0 0 Immunizations Vaccine Type Date Status Note Provider Rusty carrillo and Address Organization Details Recorded Time Influenza, high-dose, quadrivalent, PF 01/10/2021 co mpleted Zoila Anand [facility], [facility]10/23/2022 14:04:37COVID-19, mRNA, LNP-S, PF, 30 mcg/0.3 mL dose1completeEllena Zinnel [facility], [facility]10/23/2022 14:04:37COVID-19, mRNA, LNP-S, PF, 30 mcg/0.3 mL dose06/05/2020ompleteEllena Zinnel [facility], [facility]10/23/2022 14:04:37COVID-19, mRNA, LNP-S, PF, 30 mcg/0.3 mL dose01/21/2021ompleteEllena Zinnel [facility], [facility]10/23/2022 14:04:37COVID-19, mRNA, LNP-S, PF, 30 mcg/0.3 mL dose, alia-vuiprnm11/10/2022completeEllena Sadeel [facility], [facility]10/23/2022 14:04:11Rzyn5405/21/2014completedSnoni Stuartel [facility]10/23/2022 14:04:37Influenza, split virus, trivalent, xixuhkstiebe57/14/2003completedShannaha Zimarvinel [facility], [facility]10/23/2022 14:04:37Td (adult), 5 Lf tetanus toxoid, preservative free, pitjyzyz17/19/2006completPita Stuartel [facility]10/23/2022 14:04:37 Past Encounters Encounter ID Performer Location Encounter Start Date Encounter Closed Date Diagnosis/Indication Diagnosis SNOMED-CT Code Diagnosis ICD10 Code Diagnosis IMO Codes Diagnosis Note [id number] MD [address] [place] [address] 10/23/2022 13:54:18 10/31/2022 14:52:37 Renal mass 346415075 N28.89 Right renal mass, near hilumWill discuss at tumor conference. Consider biopsy before surgery.Did discuss possible nephrectomy vs. nephroureterectomyWill get urine cx and present at conference. This issue is that the mass is very central; indicating it could be a TCC rather than an RCC. The CX bladder could help. She also may need cysto and ureteroscopy with possible biopsy. We can tentatively schedule the nephrectomy for efficiency's sake. Risks, benefits, and complications of the procedure were discussed including infection, bleeding, voiding discomfort, urinary retention, fever, chills, sepsis, and others. In particular, nephrectomy has the added risk of bowel or vascular injury. All questions were answered.[id number] Hernandez_Keerthi [address] [place] [address] 01/01/2023 14:15:441 16:55:42Oncocytoma of right [id number] D30.01 s/p right HALN on 11/21, pathology with oncocytoma and neg marginsDoing well postopReviewed pathologyShe can f/u prn. Health Concerns Section Related Observation LastModified by Organization Detai ls LastModified Time None Recorded Concern Status LastModified by Organization Details LastModified Time None Recorded Advance Directives Directive None Recorded Payers Insurance Date Sequence Insurance Name Policy Number Policy Terry Covered Member ID Terry Member ID Guarantor Name 01/12/2023 1 MED[employer] (MEDICARE REPLACEMENT /ADVANTAGE - PPO) Grace [id number] E Marek Notes Date Note Type Note Provider Name and Address Orga nization Details Recorded Time 10/23/2022 text/html 82 yo F referred for bilateral renal masses. CT obtained for chest pain workup revealed bilateral renal masses; worked up with both ultrasound and renal MRI. Images obtained in [place]. 3 cmright upper pole solid enhancing mass, median, near hilum. Also a 2 cm left lower pole mass noted on CT, not seen on ultrasound. Images reviewed personally and I am not concerned about the left side. CT and MRI images reviewed on PACS.Cr 0.76 She is active, does farming/gardening. Surg Hx cholecystectomyLui Kirkland MD [address] [facility] [facility],[address], [place], [address], [facility] Zjnkxjj0810/23/2022 15:13:43001/01/2023text/html 82F here for postop visit, she is s/p right HALN on 11/21/22. She discharged on POD 1. She has been doing quite well, no major concerns or complaints today. Her incisions are healing well. Surgical pathology: oncocytoma, negative marginsLui Kirkland MD [address] [facility] [facility],[address], [place], [address], [facility] Fpccvbh9701/01/2023 15:21:23 OBGyn Episode No OBEpisode recorded.
--- NOTE | 2025-03-24 08:34 | ED.DIZZY ---
HPI - Dizziness General Chief Complaint: Dizziness/Vertigo Stated Complaint: Dizzy vomiting Time Seen by Provider: 03/24/25 08:33 History of Present Illness HPI Narrative: patient is an 85-year-old woman who woke up this morning with the abrupt onset of dizziness particularly when she turns her head to the left. She has nausea vomiting general malaise body aches fatigue. She has had no diarrhea. No abdominal pain. She is brought in by her and a code stroke was called. Patient has no focal neurologic defects she can smile without any difficulty. Did move all of her extremities and has no numbness. Her neurologic symptoms are limited to dizziness which is positional. She states she has otherwise been in her usual state of health with no other related problems recently. Related Data Home Medications ?Medication ?Instructions ?Recorded ?Confirmed multivitamin (Multiple Vitamins 1 tab PO QDAY 09/30/22 11/04/24 tablet) Advanced Joint Health Complex PO 06/10/23 11/04/24 Liver DTX Complex PO 06/10/23 11/04/24 osteo matrix PO 06/10/23 11/04/24 Allergies Allergy/AdvReac Type Severity Reaction Status Date / Time bacitracin Allergy Intermediate Hives Verified 11/04/24 09:27 cephalexin Allergy Intermediate Rash Verified 11/04/24 09:27 codeine Allergy Intermediate GI upset Verified 11/04/24 09:27 adhesive Allergy Unknown Rash Verified 11/04/24 09:27 feathers Allergy Unknown Rash Verified 11/04/24 09:27 gatifloxacin Allergy Unknown Rash Verified 11/04/24 09:27 neomycin Allergy Unknown Hives Verified 11/04/24 09:27 polymyxin B Allergy Unknown Hives Verified 11/04/24 09:27 triamcinolone Allergy Unknown intolerance Verified 11/04/24 09:27 Sulfamethoxazole / Allergy Severe hives, Uncoded 11/04/24 09:27 trimethoprim nausea, headache Bee venom Allergy Unknown Uncoded 11/04/24 09:27 Erythromycin Allergy Unknown Hives Uncoded 11/04/24 09:27 Review of Systems Status of ROS: Reports: 10 or more systems reviewed and unremarkable except as noted in History and below [facility] Medical History 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) Arthralgia of hip ?M25.559 - Pain in unspecified hip (ICD-10) History of renal calculi ?Z87.442 - Personal history of urinary calculi (ICD-10) Surgical History History of nephrectomy, right ?Z90.5 - Acquired absence of kidney (ICD-10) Status post hysterectomy ?Z90.710 - Acquired absence of both cervix and uterus (ICD-10) Status post cholecystectomy ?Z90.49 - Acquired absence of other specified parts of digestive tract (ICD-10) Status post cataract extraction ?Z98.49 - Cataract extraction status, unspecified eye (ICD-10) Status post bladder repair ?Z98.890 - Other specified postprocedural states (ICD-10) History of tonsillectomy and adenoidectomy ?Z90.89 - Acquired absence of other organs (ICD-10) History of thumb surgery ?Z98.890 - Other specified postprocedural states (ICD-10) History of repair of retinal tear by laser photocoagulation ?Z98.890 - Other specified postprocedural states (ICD-10) Family History Other Breast cancer Diabetes Esophageal cancer Melanoma Myasthenia gravis Social History What is your current living situation?: I presently have a place to live Problems where you live: no known problems In the past 12 months, utilities in danger of being shut off: no In past 12 months, lack of transportation kept you from medical appts, meetings, work, or getting things needed for daily living: no In the past 12 mos, have been you worried that your food would run out before you had money to buy more?: never true In the past 12 mos, the food you bought just didn't last and you didn't have money to buy more?: never true Smoking Status: Never smoker Do you use any of these nicotine containing products: None Second hand tobacco smoke exposure: No How often do you have a drink containing alcohol: never AUDIT-C Alcohol total score: 0 Non-prescribed substance use: denies use How often does anyone, including family, friends and others, physically hurt you: never How often does anyone, including family, friends and others, insult or talk down to you: never How often does anyone, including family, friends and others, threaten you with harm: never How often does anyone, including family, friends and others, scream or curse at you: never service: No Exam Narrative: Exam Narrative: EXAM GENERAL: Patient appears comfortable and well. EYES: No scleral icterus. LYMPH: No supraclavicular or cervical lymphadenopathy. SKIN: Visible skin seen during exam normal or with benign process only. EXT: No dependent lower extremity pedal edema. HEART: Regular rate and rhythm with no murmurs, rubs, or gallops. LUNGS: Clear to auscultation bilaterally with no crackles or wheezes. ABD: Soft, non tender, non distended. PSYCH: Good eye contact, speech is not pressured. Neurologic cranial nerves 2-12 grossly intact. Const: Vital Signs, click to edit/add: Vital Signs - 24 hr 03/24/25 08:29 03/24/25 08:30 03/24/25 08:31 Temperature 97.1 F L Pulse Rate 74 Pulse Rate [Pulse Oximeter] 70 Respiratory Rate 21 15 18 Blood Pressure 193/83 H 185/75 H Blood Pressure [Ri ght Upper Arm] 193/83 H Pulse Oximetry 95 94 93 Oxygen Delivery Me thod Room Air 03/24/25 08:31 03/24/25 08:32 03/24/25 09:00 Temperature Pulse Rate 72 70 63 Pulse Rate [Pulse Oximeter] Respiratory Rate 22 Blood Pressure 189/79 H Blood Pressure [Ri ght Upper Arm] Pulse Oximetry 95 94 93 Oxygen Delivery Me thod 03/24/25 09:02 03/24/25 09:02 03/24/25 09:27 Temperature Pulse Rate 66 66 69 Pulse Rate [Pulse Oximeter] Respiratory Rate 23 23 Blood Pressure 166/73 H 166/73 H Blood Pressure [Ri ght Upper Arm] Pulse Oximetry 92 92 92 Oxygen Delivery Me thod 03/24/25 09:30 03/24/25 09:32 03/24/25 09:45 Temperature Pulse Rate 74 74 67 Pulse Rate [Pulse Oximeter] Respiratory Rate 14 Blood Pressure 161/69 H Blood Pressure [Ri ght Upper Arm] Pulse Oximetry 94 94 91 Oxygen Delivery Me thod Course Course ED Course: Will proceed with CT of her chest troponin CBC comprehensive metabolic panel D-dimer chest x-ray EKG will give of fluid bolus and a dose of Zofran and reassess. Vital Signs Vital signs: Initial Vital Signs Respiratory Rate 21 03/24/25 08:29 Blood Pressure 193/83 H 03/24/25 08:29 Blood Pressure Mean 119 H 03/24/25 08:29 Pulse Oximetry 95 03/24/25 08:29 Vital Signs Respiratory Rate 21 03/24/25 08:29 Blood Pressure 193/83 H 03/24/25 08:29 Pulse Oximetry 95 03/24/25 08:29 Temperature 97.1 F L 03/24/25 08:31 Pulse Rate 67 03/24/25 09:45 Respiratory Rate 14 03/24/25 09:45 Blood Pressure 161/69 H 03/24/25 09:32 Pulse Oximetry 91 03/24/25 09:45 Oxygen Delivery Method Room Air 03/24/25 08:31 Medications Administered Medications: Discontinued Medications Generic Name Dose Route Start Last Admin Trade Name Freq PRN Reason Stop Dose Admin Sodium Chloride 500 mls @ 500 mls/hr 03/24/25 08:37 03/24/25 08:53 0.9 % Sodium Chloride 500 Ml IV 03/24/25 09:36 500 mls/hr .Q1H ISADORA Administration Ondansetron HCl 4 mg 03/24/25 08:37 03/24/25 08:53 Ondansetron 2 Mg/Ml Inj IVP 03/24/25 08:38 4 mg ONCE ONE Administration MDM - Dizziness MDM Narrative Medical decision making narrative: Patient presents with dizziness headache and malaise. She has no focal neurologic defects I do give her NIH stroke scale of 0. EKG shows chronic appearing left bundle-branch block. CT and CTA were unremarkable. She does have mildly elevated hemoglobin hematocrit which is chronic for her. Troponin is negative electrolytes are unremarkable. Patient has no findings on exam. I did give her 500 mL of saline and 15 mg of Toradol. She is treated and released as I do not believe she requires an MRI. She will advance her diet activity as tolerated I did treated with Zofran at home and she will follow-up with her primary physician. Lab Data Labs: Lab Results 03/24/25 03/24/25 Range/Units 08:36 08:55 WBC 7.43 (4.50-11.00) K/uL RBC 5.69 H (4.00-5.20) m/uL Hgb 16.8 H (12.0-16.0) gm/dL Hct 53.3 H (33.0-51.0) % MCV 94 (80-100) fL MCH 30 (26-34) pg MCHC 32 (32-36) gm/dL RDW Coeff of Cliff 12.8 (11.5-15.5) % Plt Count 234 (140-440) K/uL Neut % (Auto) 78.7 H (42.0-72.0) % Lymph % (Auto) 15.3 L (20-44) % Pitkin % (Auto) 4.6 (0.0-11.0) % Eos % (Auto) 0.8 (0.0-7.0) % Baso % (Auto) 0.5 (0.0-3.0) % Neut # (Auto) 5.80 (1.7-7.0) K/uL Lymph # (Auto) 1.10 (0.90-2.90) K/uL Pitkin # (Auto) 0.30 (0.00-0.90) K/UL Eos # (Auto) 0.06 (0.00-0.50) K/uL Baso # (Auto) 0.04 (0.00-0.30) K/uL Abs Immat Gran (auto) 0.01 (0.00-0.30) K/uL Imm/Tot Granulo (auto) 0.1 % D-Dimer Quant (PE/DVT) 0.77 H (0.00-0.50) ug/ml Sodium 137 (135-149) mmol/L Potassium 4.0 (3.6-5.1) mmol/L Chloride 104 (96-114) mmol/L Carbon Dioxide 26 (20-32) mmol/L Anion Gap 7 (7-15) mEq/L BUN 24 (7-30) mg/dL Creatinine 0.9 (0.5-1.5) mg/dL Estimated Creat Clear 33.71 Estimated GFR 63 ml/min Glucose 143 H (60-115) mg/dL Calcium 9.0 (8.4-10.6) mg/dL Total Bilirubin 1.0 (0.1-1.5) mg/dL AST 29 (12-35) U/L ALT 26 (4-35) U/L Alkaline Phosphatase 98 (40-150) U/L POC Troponin I High Sensi 6.5 (2.9-13.0) pg/mL Total Protein 7.5 (6.0-8.3) g/dL Albumin 4.4 (3.3-5.0) g/dL Discharge Plan Discharge Clinical Impression: Acute viral syndrome Patient Disposition: Home, Self-Care Condition: Stable Instructions: Viral Syndrome (ED) Additional Instructions: Advanced diet activity as tolerated. Rest Zofran as needed for nausea Follow-up with your doctor this coming week. Activity Level: No Restrictions Discharge Diet: Regular Prescriptions: No Action multivitamin [Multiple Vitamins] Tablet 1 tab PO QDAY osteo matrix PO Advanced Joint Health Complex PO Liver DTX Complex PO Follow Up/Referrals: Jack Gregorio MD [Primary Care Provider, Family Practice] Stand Alone Forms: MyHealth Info Instructions
--- NOTE | 2025-03-24 08:36 | CRLHL7_ITS ---
For Patients: As a result of the Century Cures Act, medical imaging exams and procedure reports are released immediately into your electronic medical record. You may view this report before your referring provider. If you have questions, please contact your health care provider. INDICATION: Dyspnea COMPARISON: None TECHNIQUE: Single view study FINDINGS: TUBES AND LINES: None. HEART AND MEDIASTINUM: Mildly enlarged heart. LUNGS AND PLEURAL SPACES: The lungs appear normal.The pleural spaces are unremarkable. OSSEOUS STRUCTURES: Age-appropriate appearance. No acute focal finding. IMPRESSION: Mildly enlarged heart. The lungs and pleural spaces appear normal. Dictated by Jose M Haddad MD @ 03/24/2025 9:09:40 AM (Electronically Signed)
--- NOTE | 2025-03-24 08:36 | CRLHL7_ITS ---
For Patients: As a result of the Century Cures Act, medical imaging exams and procedure reports are released immediately into your electronic medical record. You may view this report before your referring provider. If you have questions, please contact your health care provider. INDICATION: Vertigo. Clinical signs and symptoms of acute stroke. COMPARISON: September 27, 2022 TECHNIQUE: CT examination of the head was performed as axial sections without intravenous contrast. Images were obtained from the vertex of the skull through the skull base. Please note that all CT scans at this facility use dose modulation, iterative reconstruction, and/or weight-based dosing when appropriate to reduce radiation dose to as low as reasonably achievable. FINDINGS: The brain shows no sign of mass lesion, mass effect, hemorrhage, or edema. There are involutional changes. There is moderate cortical atrophy and there is moderate white matter disease. There is no hydrocephalus. The visualized portions of the orbits are normal in appearance. The osseous structures are normal in appearance with no sign of abnormality in the skull base or calvarium. Discussed with Dr. Mayes at 8:54 a.m. on March 24, 2025 IMPRESSION: Involutional changes. No acute-appearing findings. Please note that all CT scans at this facility use dose modulation, iterative reconstruction, and/or weight-based dosing when appropriate to reduce radiation dose to as low as reasonably achievable. Dictated by Jose M Haddad MD @ 03/24/2025 8:56:00 AM (Electronically Signed)
[2025-03-24 08:43] LABS: Hematocrit* 53.3 % (33.0-51.0); Hemoglobin* 16.8 gm/dL (12.0-16.0); Immature Granulocytes Abs Auto 0.01 K/uL (0.00-0.30); Immature Granulocytes Pct Auto 0.1 %; Mean Corpuscular HGB Conc 32 gm/dL (32-36); Mean Corpuscular Hemoglobin 30 pg (26-34); Mean Corpuscular Volume 94 fL (80-100); RDW Coefficient of Variation % 12.8 % (11.5-15.5); Red Blood Count* 5.69 m/uL (4.00-5.20); White Blood Count* 7.43 K/uL (4.50-11.00)
[2025-03-24 08:44] LABS: Lymphocytes Absolute Auto 1.10 K/uL (0.90-2.90); Slide Review Reflex No
[2025-03-24 08:53] LABS: Chloride* 104 mmol/L (96-114)
[2025-03-24] MEDS: 0.9 % SODIUM CHLORIDE 500 ML 500 ML IV (08:53)
[2025-03-24] MEDS: ONDANSETRON 2 MG/ML inj 4 MG IVP (08:53)
[2025-03-24 08:54] LABS: Albumin* 4.4 g/dL (3.3-5.0); Potassium* 4.0 mmol/L (3.6-5.1); Sodium* 137 mmol/L (135-149)
--- OUTSIDE RECORDS SUMMARY | 2025-03-24 08:55 | XMS_ITS | Data Portability ---
Author Organization [place] [facility] [place] [facility], [facility] Address [address] [place] [address] Assessment No assessment recorded. Plan of Treatment Reminders Order DateSubmit DateProviderLast Modified ByHarlan DetailsLast Modified TimeDetailsAppointmentsNone recorded.Labbladder cancer assay, urine - If specimen is rejected or is QNS please send patient a home kit10/23/2022 10/23/2022[employer], [address], [address], [place], [address], 07/ 10:12:11ReferralNone recorded.ProceduresNone recorded.Surgeriesnephrectomy, hand assisted laparoscopic (SURG)rbuchanan11Not /25/2023 11:36:43ImagingNone recorded.Medication OrdersNone recorded. Patient TargetsNo targets [...] HAND ASSISTED LAPAR OSCOPIC (SURG) Shahab Tellez [facility] Bhqryfq7012/02/2022 09:58: ColonoscopycompletedSamantha Sadeel[place] Ifgivbz5710/23/2022 14:08:12 CholecystectomycompletedTanika SalasMay[facility] Clinic Hospital10/16/2022 16:37:40extraction of cataractcomPhillips County Hospitaltejas [facility] 10/16/2022 16:37:51repair of urinary bladdercomssm health careJack [facility]10/16/2022 16:38:03Remove tonsils and adenoidscomhawthorn children's psychiatric hospitalTanika [facility]10/16/2022 16:38:32Total hysterectomycompleted Zoila AnandMayo Clinic Hospital10/23/2022 14:07:41 Imaging Results None recorded. Procedure Notes None recorded. Medical Equipment None Reported. Allergies Allergen ID Allergen Name Allergen Category Reaction Reaction Severity Criticality Documentation Date Start Date Code Code System Note Provider Name and Address Organization Details Recorded Time 367327 Bactrim medication hives Not available Not yrhyhsvux28/13/[id number] [place] [facility]10/16/2022 16:25:21410156uphkzrjvhxbzqfzpbkiqonbx Not available Not whrszpqfo53/13/41633489JfImptXzfoasl [place] [facility]10/16/2022 16:31:61933639imjhzvoxjbkipxqffguedvw cramps Not available Not kyoywkxkr38/13/46220183QmIzeaCnbojll [place] [facility]10/16/2022 16:31:03730244iyscwzcfosjvznaevrm,medicationNot available Not available Not /13/2023mindy Salas [facility]10/16/2022 16:31:50761727lymbgtyqvtliecbkvbqIgr available Not available Not ntumeaeuj77/13/2023mindy Salas [facility]10/16/2022 16:31:13437467focvjopkbprlxdsfmgtcexOgp available Not available Not ujzkwapyv89/13/7924839245ZjJgieEmjzazi [place] [facility]10/16/2022 16:32:77309295ebijpjbxdxytgrnhnyIgq available Not available Not vayjurgqf61/13/49384388TrJisaCauvuuiKyle morales, [facility]10/16/2022 16:32:81514755sgurpctjm BmedicationNot available Not available Not xjzdwbjri67/13/04038935CzXnqqMwkbaodKyle moralesSt. [facility]10/16/2022 16:32:35320950xvjmbtayvcngttgjxpdowqhWqb available Not available Not nwbxngxxa94/13/865360080YjBhrdFyqrcxg [place] [facility], [facility]10/16/2022 16:32:30205182Gqwwbtdny with sulfonamide structure and antibacterial mechanism of action (substance)medicationNot available Not available Not wspjuqlkm39/13/5732505649168YHIQEGIpppaaf [place] [facility]10/16/2022 16:32:20261432bughmzcxjsmyubnq / trimethoprim medicationNot available Not available Not jkvptzgou20/13/646968773GhWxsyJhvsdrb [place] [facility]10/16/2022 16:33:65097885fddvw bee venommedicationNot available Not available Not qfhjawxlw88/13/2351258106LzXkyuNqxnhyjd Zinnba [facility], [facility]10/23/2022 14:04:07794565qatoqplirnbrroccfpgaooBji available Not available Not lhphvylur61/13/78731358QkDtqzYzyugmtKyle Salas [facility]10/16/2022 16:33:29 Medications Name Sig Start Date Stop Date Status Note LastModified by Organization Details LastModified Time oxycodone 5 mg tablet 3completedNot AvailableNot AvailableNot Available Vitals Date Recorded Body height Body mass index (BMI) Body weight Provider Name and Address Organization Details Last Updated DateTime 10/23/2022 157.48 cm 34 kg/m2 70449.18 g Zoila Anand [facility] 10/23/2022 14:04:32 Date Recorded Body height Body mass index (BMI) Body weight Provider Name and Address Organization Details Last Updated DateTime 01/01/2023 157.48 cm 33.7 kg/m2 97161.79 alicja Kirkland MD [address], [place], [address], [place] [facility] 01/01/2023 14:58:35 Social History Question Answer Notes LastModified by Organization D etails LastModified Time Tobacco Smoking Status Never Smoker Tanika Salas [facility] Jxmwwii5510/16/2022 16:35:50What Is Your Level Of Caffeine Consumption?NonecmeulenersInformation not gwrudjmkv88/13/2023EthnicityNot /LatinocmeulenersInformation not mvymirnfh79/13/2023referred Language EnglishcmeulenersInformation not ioctlpbxz69/13/2023What Was The Date Of Your Most Recent Tobacco Screening?01/01/2023sovellInformation not available 01/01/2023What Is Your Relationship Status?MarriedcmeulenersInformation not zcdasyazy81/13/2023Has Tobacco Cessation Counseling Been Provided?Nocherber Information not pvythedte67/13/2023 Sex: Unknown Functional Status Question Answer Note LastModified by Organization D etails LastModified Time Do you or have you ever used any other forms of tobacco or nicotine? No cmeulenersInformation not lsscxkmce69/13/2023What is your level of alcohol consumption?NonecmeulenersInformation not nvwbhlipf48/13/2023 Mental Status None recorded. Family History Relationship Description Onset Age of this Age Resolved Age Notes LastModified by Organization Details LastModified Time Sister Family history of breast cancer szinnelNot exyuitwyl25/20/2023 14:06:27FatherFamily history of diabetes mellitus szinnelNot bvbzeuvxs33/20/2023 14:06:32FatherFamily history of myasthenia gravis szinnelNot rkgrztpay17/20/2023 14:06:41MotherFamily history of malignant neoplasmesophagealszinnelNot bbmpjnqby24/20/2023 14:06:55BrotherFamily history of malignant melanomaszinnelNot aemrtzvst01/20/2023 14:06:58BrotherFamily history of malignant neoplasmstomachszinnelNot vznqlcafr22/20/2023 14:07:09 Medical History Condition Response Diabetes N [...] quadrivalent, PF 01/10/2021 co mpleted Zoila Anand [facility], [facility]10/23/2022 14:04:37COVID-19, mRNA, LNP-S, PF, 30 mcg/0.3 mL dose1completeEllena Zinnel [facility], [facility]10/23/2022 14:04:37COVID-19, mRNA, LNP-S, PF, 30 mcg/0.3 mL dose06/05/2020ompleteEllena Zinnel [facility], [facility]10/23/2022 14:04:37COVID-19, mRNA, LNP-S, PF, 30 mcg/0.3 mL dose01/21/2021ompleteEllena Zinnel [facility], [facility]10/23/2022 14:04:37COVID-19, mRNA, LNP-S, PF, 30 mcg/0.3 mL dose, alia-yejxmqd77/10/2022completeEllena Sadeel [facility], [facility]10/23/2022 14:04:64Ctmf7405/21/2014completedSnoni Stuartel [facility]10/23/2022 14:04:37Influenza, split virus, trivalent, /14/2003completedShannaha Zimarvinel [facility], [facility]10/23/2022 14:04:37Td (adult), 5 Lf tetanus toxoid, preservative free, qtmjzwas78/19/2006completPita Stuartel [facility]10/23/2022 14:04:37 Past Encounters Encounter ID Performer Location Encounter Start Date Encounter Closed Date Diagnosis/Indication Diagnosis SNOMED-CT Code Diagnosis ICD10 Code Diagnosis IMO Codes Diagnosis Note [id number] [place] [address] 10/23/2022 13:54:18 10/31/2022 14:52:37 Renal mass 077729842 N28.89 Right renal mass, near hilumWill discuss [...] bowel or vascular injury. All questions were answered.[id number] Hernandez_Keerthi [address] [place] [address] 01/01/2023 14:15:441 16:55:42Oncocytoma of right [id number] D30.01 s/p right HALN on 11/21, pathology [...] MEDICA (MEDICARE REPLACEMENT /ADVANTAGE - PPO) Grace [id number] E Marek Notes Date Note Type Note Provider Name and Address Orga nization Details Recorded Time 10/23/2022 text/html 82 yo F referred for bilateral renal masses. CT obtained for chest pain workup revealed bilateral renal masses; worked up with both ultrasound and renal MRI. Images obtained in [place]. 3 cmright upper pole solid enhancing mass, median, near hilum. Also a 2 cm left lower pole mass noted on CT, not seen on ultrasound. Images reviewed personally and I am not concerned about the left side. CT and MRI images reviewed on PACS.Cr 0.76 She is active, does farming/gardening. Surg Hx cholecystectomyLui Kirkland MD [address], [place], [address], [facility] Vmhajgc3810/23/2022 15:13:43001/01/2023text/html 82F here for postop visit, she is s/p right HALN on 11/21/22. She discharged on POD 1. She has been doing quite well, no major concerns or complaints today. Her incisions are healing well. Surgical pathology: oncocytoma, negative marginsLui Kirkland MD [address], [place], [address], [facility] Myoxqbi9101/01/2023 15:21:23 OBGyn Episode No OBEpisode recorded.
[2025-03-24 08:56] LABS: Blood Urea Nitrogen* 24 mg/dL (7-30); Creatinine* 0.9 mg/dL (0.5-1.5); Est. Creatinine Clearance* 33.71; Estimated Glomerular Filt Rate 63 ml/min
[2025-03-24 08:57] LABS: Alanine Aminotransferase* 26 U/L (4-35); Alkaline Phosphatase* 98 U/L (40-150); Anion Gap 7 mEq/L (7-15); Aspartate Amino Transferase* 29 U/L (12-35); Bilirubin Total* 1.0 mg/dL (0.1-1.5); Calcium* 9.0 mg/dL (8.4-10.6); Carbon Dioxide* 26 mmol/L (20-32); Glucose* 143 mg/dL (60-115); Total Protein* 7.5 g/dL (6.0-8.3)
[2025-03-24 08:59] LABS: D Dimer Quantitative* 0.77 ug/ml (0.00-0.50)
--- NOTE | 2025-03-24 09:03 | CT_ITS ---
Patient: VELIA GUILLORY Facility:?[facility] Patient ID:?[id number] Site Patient ID:?[id number]. Site :?[id number] Study:?CT-Head Angio 95CC ISOVUE 370 CODE STROKE-03/24/2025 9:28:07 AM Ordering Physician:Hailee Basurto Final Report: DATE: 03/24/2025 CLINICAL HISTORY: Patient with vertigo. TECHNIQUE: Standard helical CT image acquisition through the head and neck was performed after intravenous contrast bolus enhancement. 2D and 3D MIP images for post- processing were performed and interpreted on an independent workstation and 3D images were permanently archived. COMPARISON: CT same day. FINDINGS: The origins of the great vessels from the aortic arch are patent. The origin of the right vertebral artery is patent. The origin of the left vertebral artery is patent. The common carotid arteries are patent There is no stenosis at the origin of the right internal carotid artery. There is no stenosis at the origin of the left internal carotid artery. The rest of the cervical segments of the internal carotid arteries are patent up to their intracranial segments. The intracranial segments of the internal carotid arteries are patent. The right vertebral artery is dominant. The cervical segments of the vertebral arteries are patent. The intracranial segments of the vertebral arteries are patent. The middle cerebral arteries are normal without aneurysm or proximal occlusion identified. The anterior cerebral arteries are normal without aneurysm or proximal occlusion identified. The anterior communicating artery is well visualized and appears normal. The basilar artery is normal without aneurysm or occlusion. The posterior cerebral arteries are normal without aneurysm or proximal occlusion. There is normal opacification of major intracranial venous structures. The visualized lung apices are unremarkable The thyroid gland is unremarkable. The soft tissues of the neck are unremarkable. There are degenerative changes in the cervical spine. IMPRESSION: Normal CT angiogram of the head and neck. Please note that all CT scans at this facility use dose modulation, iterative reconstruction, and/or weight-based dosing when appropriate to reduce radiation dose to as low as reasonably achievable. Dictated by Cullen Barone MD @ 03/24/2025 9:58:16 PM (Electronic Signature)
--- NOTE | 2025-03-24 09:03 | CT_ITS ---
Patient: VELIA GUILLORY Facility:?[facility] Patient ID:?[id number] Site Patient ID:?[id number]. Site :?[id number] Study:?CT-Neck Angio Angio 95CC ISOVUE 370 STROKE CODE-03/24/2025 9:29:30 AM Ordering Physician:Hailee Basurto Final Report: DATE: 03/24/2025 CLINICAL HISTORY: Patient with vertigo. TECHNIQUE: Standard helical CT image acquisition through the head and neck was performed after intravenous contrast bolus enhancement. 2D and 3D MIP images for post- processing were performed and interpreted on an independent workstation and 3D images were permanently archived. COMPARISON: CT same day. FINDINGS: The origins of the great vessels from the aortic arch are patent. The origin of the right vertebral artery is patent. The origin of the left vertebral artery is patent. The common carotid arteries are patent There is no stenosis at the origin of the right internal carotid artery. There is no stenosis at the origin of the left internal carotid artery. The rest of the cervical segments of the internal carotid arteries are patent up to their intracranial segments. The intracranial segments of the internal carotid arteries are patent. The right vertebral artery is dominant. The cervical segments of the vertebral arteries are patent. The intracranial segments of the vertebral arteries are patent. The middle cerebral arteries are normal without aneurysm or proximal occlusion identified. The anterior cerebral arteries are normal without aneurysm or proximal occlusion identified. The anterior communicating artery is well visualized and appears normal. The basilar artery is normal without aneurysm or occlusion. The posterior cerebral arteries are normal without aneurysm or proximal occlusion. There is normal opacification of major intracranial venous structures. The visualized lung apices are unremarkable The thyroid gland is unremarkable. The soft tissues of the neck are unremarkable. There are degenerative changes in the cervical spine. IMPRESSION: Normal CT angiogram of the head and neck. Please note that all CT scans at this facility use dose modulation, iterative reconstruction, and/or weight-based dosing when appropriate to reduce radiation dose to as low as reasonably achievable. Dictated by Cullen Barone MD @ 03/24/2025 9:58:50 PM (Electronic Signature)
== END 2025-03-24 10:37 | disposition home or self-care (01) ==
PROVIDERS: Emergency Provider Internal Medicine; PCP Family Medicine
DX: B34.9 Viral infection, unspecified (principal)
CPT/HCPCS: 36415; 70450; 70496; 70498; 71045; 80053; 84484; 85025; 85379; 93005; 96361; 96374; 99284; 99285; J2405; J7030; Q9967